=== PATIENT | female | born 1955 | race Caucasian/White ===

== ENCOUNTER 2022-11-03 12:18 | Emergency (ER) | payer MEDICARE, BC, SELFPAY ==
[2022-11-03 12:39] VITALS: BP 167/71; PULSE 62; RESP 18; TEMP 37; O2SAT 99
--- NOTE | 2022-11-03 14:15 | DI.CT_ITS ---
Exam(s) CT LOWER EXTREMITY RT WO EXAM: CT LOWER EXTREMITY RT WO CLINICAL HISTORY: fall, knee and prox tib fib pain. TECHNIQUE: Imaging Protocol: Axial computed tomography images with coronal and sagittal reformatted images were created and reviewed. CONTRAST MATERIAL: Intravenous: Omnipaque 350 Contrast volume:structured data in ml Contrast route:IV - COMPARISON: No exams were available for comparison FINDINGS: A hemarthrosis present. There is a comminuted fracture of the lateral tibial plateau with significant impaction at the articu lar surface, up to 1 cm. The impaction is greater anteriorly and centrally. The medial tibial plate au is intact. There has been a prior ACL repair. The distal femur and patella are intact. No addit ional fractures are seen more distally in the tibia and fibula. The ankle and visualized portions of the foot are unremarkable. No soft tissue hematoma is seen. IMPRESSION: Comminuted, and impacted fracture of the lateral tibial plateau. RADIATION DOSE DELIVERED: 554.02mGy.cm Total DLP DATA REPOSITORY: All CT scans at this facility are submitted to the National Radiology Data Registry (NRDR) Dose Index Registry (DIR) with the [employer] ([employer]). RADIATION OPTIMIZATION: All CT scans at this facility use at least one of these dose optimization te chniques: automated exposure control; mA and/or kV adjustment per patient size (includes targeted exa ms where dose is matched to clinical indication); or iterative reconstruction.
--- NOTE | 2022-11-03 14:38 | ED.GENADUL_ITS ---
Discharge Plan Disposition Patient Disposition: Home Condition: Stable Discharge Details Clinical Impression: Closed fracture of tibial plateau Primary Care Provider: C[facility],Local ED Provider: Lv Edwards Home Meds and New Rx's Prescriptions: New oxycodone-acetaminophen [Percocet] 5-325 mg tablet 1 tab PO Q8H PRN (Reason: pain) Qty: 10 0RF Rx Instructions: prn severe pain only pantoprazole 40 mg tablet,delayed release (DR/EC) 40 mg PO DAILY Qty: 14 0RF Colace Clear 50 mg capsule 50 mg PO DAILY Qty: 14 0RF No Action cetirizine [Zyrtec] 10 mg Tablet 10 mg PO HS atorvastatin 10 mg Tablet 10 mg PO DAILY diltiazem HCl 240 mg Capsule,Extended Release 24hr 240 mg PO HS lisinopril 10 mg Tablet 10 mg PO DAILY albuterol 90 mcg/actuation Aerosol 2 mcg INHALATION PRN PRN budesonide-formoterol [Symbicort] 80-4.5 mcg/actuation Hfa Aerosol Inhaler 2 puff INHALATION BID Discharge Instructions Instructions: Leg Fracture (ED) Additional Instructions: Please follow-up closely with your project management it specialist when you return home to [place]. Use knee immobilizer and crutches keep leg nonweightbearing. Elevate and ice. Continue with ibuprofen and/or acetaminophen at home for pain and swelling. Use Percocet sparingly for severe pain only. I also prescribed you an acid suppressant medication pantoprazole as well as a stool softener Colace to prevent constipation. If you develop worsening symptoms such as severe worsening pain numbness tingling weakness color changes or any other abnormal symptoms of your leg please return to the emergency department promptly for reassessment. Medical Decision Making 67-year-old female presents after fall while skiing, remote ACL and tibial plateau injury, effusion to knee, no crepitus deformity or laxity, patient does have ecchymosis and swelling to lateral aspect of fibula, DP pulse intact sensation intact, range of motion limited by pain. Concern for ACL injury versus meniscal injury versus collateral ligament injury versus must consider distal femur fracture versus tibial plateau fracture, no evidence of compartment syndrome at this time given warm well perfused sensate extremity patient only wants Motrin and Tylenol for pain control at this time have offered to increase analgesia as needed. Given past surgical complexity and level of discomfort and localized edema will obtain CT of lower extremity to assess joint and leg. Disposition pending imaging results 17: 37 progressive pain specifically over anterior glover of affected limb. Depressed tibial plateau fracture. DP pulse intact sensation intact however patient is no longer able to dorsiflex toes or foot despite effort. Is able to passively have foot and toes dorsiflexed. Tense anterior region. Given progressive pain and now motor findings will obtain compartment pressures. 18: 43 persistent discomfort and inability to dorsiflex, able to be passively dorsiflex without much discomfort. Compartment pressures were obtained using Eric needle under sterile conditions. Anterior compartment pressure 24, lateral compartment pressure 13, deep posterior pressure 4 and superficial posterior pressure 11; sensation in leg remains intact, DP pulses strong warm well perfused extremity. With pressure reading of anterior compartment hematoma was spontaneously expressing from puncture site. Hemostatic with pressure. We will continue with pain management here in department and discuss options for discharge versus admission for pain control. Patient placed in knee immobilizer 20: 18 pain more controlled resting comfortably. Limb remains warm with good DP pulse sensate and toe mobility intact. Patient prefers to follow-up with her orthopedic surgeon in [place] given home care instructions and strict return precautions specifically for any signs of compartment syndrome. Patient will be discharged in knee immobilizer and crutches. HPI General Date/Time Provider Initiated Documentation: 11/03/22 14:11 . HPI Narrative: 67-year-old female remote tibial plateau and ACL injury right lower extremity presents with right lower extremity injury while skiing, fell forward onto her knee and face, no loss of consciousness, pain in her knee and lower extremity. Worse with movement. Related Data Home Medications Medication Instructions Recorded Confirmed albuterol 90 mcg/actuation aerosol 2 mcg inhalation PRN PRN 11/03/22 11/03/22 inhaler atorvastatin 10 mg tablet 10 mg PO DAILY 11/03/22 11/03/22 budesonide-formoterol HFA 80 2 puff inhalation BID 11/03/22 11/03/22 mcg-4.5 mcg/actuation aerosol inhaler (Symbicort) cetirizine 10 mg tablet (Zyrtec) 10 mg PO HS 11/03/22 11/03/22 diltiazem HCl 240 mg 240 mg PO HS 11/03/22 11/03/22 capsule,extended release 24 hr docusate sodium 50 mg capsule 50 mg PO DAILY #14 caps 11/03/22 (Colace Clear) lisinopril 10 mg tablet 10 mg PO DAILY 11/03/22 11/03/22 oxycodone-acetaminophen 5 mg-325 1 tab PO Q8H PRN pain #10 tabs 11/03/22 mg tablet (Percocet) pantoprazole 40 mg tablet,delayed 40 mg PO DAILY #14 tabs 11/03/22 release Previous Rx's Medication Instructions Recorded docusate sodium 50 mg capsule 50 mg PO DAILY #14 caps 11/03/22 (Colace Clear) oxycodone-acetaminophen 5 mg-325 1 tab PO Q8H PRN pain #10 tabs 11/03/22 mg tablet (Percocet) pantoprazole 40 mg tablet,delayed 40 mg PO DAILY #14 tabs 11/03/22 release General Stated Complaint: Orthopedic SHANICE: 4 Review of Systems Narrative: Review of Systems Constitutional: negative Eyes: negative ENT: negative Cardiovascular: negative Respiratory: negative Gastrointestinal: negative : negative Musculoskeletal: Knee injury Skin: negative Neurologic: negative Psych: negative PFSH All Active Problems (Updated 11/03/22 @ 20:19 by Lv Edwards MD) Closed fracture of tibial plateau (Acute) Social History Smoking/Tobacco Use Status: Never Smoking risk assessment performed?: Yes Alcohol Intake: current Alcohol Intake frequency: a few times a week Alcohol type: wine Drug use: Never Do you feel safe at home: Yes (Spouse at bedside) Do you feel safe in your relationship?: Yes Exam Narrative Exam Narrative: Physical Examination General: alert, awake, cooperative, resting comfortably, no acute distress HEENT: normocephalic, abrasion to upper lip and chin, no malocclusion; PERRL, EOM intact, conjunctiva normal; no nasal discharge; moist mucous membranes, oral and pharyngeal mucosa normal, tolerating secretions Neck: supple, trachea midline; full ROM Chest: normal to inspection Respiratory: normal respiratory effort, speaking in full sentences, clear to auscultation, no wheezing, rales or rhonchi Cardiac: regular rate, regular rhythm, S1S2 intact, no murmurs rubs or gallops GI: abdomen soft, non-tender, non-distended; no palpable mass or hepatosplenomegaly Skin: no lesions, rashes or trauma appreciated Neuro: AAOx3, normal speech, moving all extremities Extremities: Suprapatellar effusion no crepitus or deformity, patient does have ecchymosis and swelling to lateral aspect of fibula, DP pulse intact, sensation in toes and foot intact, warm well perfused extremity, flexion extension limited by pain Psych: Appropriate mood and affect Course Vital Signs Vital signs: Vital Signs Temperature 37.0 C 11/03/22 12:39 Pulse 62 11/03/22 12:39 Respiratory Rate 18 11/03/22 12:39 Blood Pressure 167/71 H 11/03/22 12:39 Pulse Oximetry 99 11/03/22 12:39 Temperature 37.0 C 11/03/22 12:39 Pulse 62 11/03/22 12:39 Respiratory Rate 18 11/03/22 12:39 Blood Pressure 167/71 H 11/03/22 12:39 Blood Pressure Position Sitting 11/03/22 12:39 Pulse Oximetry 99 11/03/22 12:39 Oxygen Delivery Method Room Air 11/03/22 12:39 Oxygen Flow Rate 0 11/03/22 12:39 Pain Level 7 11/03/22 12:39
[2022-11-03] MEDS: Ibuprofen 600 MG TAB PO (14:42)
[2022-11-03] MEDS: Acetaminophen 325 MG TAB 650 MG PO (14:42)
[2022-11-03 15:48] VITALS: BP 124/46; PULSE 57; RESP 12; TEMP 36.4; O2SAT 97
[2022-11-03] MEDS: Ketorolac 15 MG/ML VIAL IVP (16:34)
[2022-11-03] MEDS: LORazepam 2 MG/ML VIAL 1 MG IVP (16:35)
--- NOTE | 2022-11-03 16:36 | DI.VRAD_ITS ---
PROCEDURE INFORMATION: Exam: CT Right Lower Extremity Without Contrast Exam date and time: 11/03/2022 3:27 PM Age: 67 years old Clinical indication: Other: Fall, knee to prox tib fib pain TECHNIQUE: Imaging protocol: CT of the Right lower extremity without contrast was performed. Radiation optimization: All CT scans at this facility use at least one of these dose optimization techniques: automated exposure control; mA and/or kV adjustment per patient size (includes targeted exams where dose is matched to clinical indication); or iterative reconstruction. COMPARISON: No relevant prior studies available. FINDINGS: Bones/joints: Patient is status post remote anterior cruciate ligament repair. There is an acute comminuted, type 3, tibial plateau fracture involving the right lateral tibial plateau. There is a joint effusion within the suprapatellar and the femoral tibial joint spaces, consistent with a hemarthrosis. Small osteochondral fragments are present at the level of the intercondylar eminence, this may be secondary to patient's prior surgery versus acute injury. Soft tissues: There is extensive soft tissue swelling. IMPRESSION: 1. Patient is status post remote anterior cruciate ligament repair. 2. There is an acute comminuted, type 3, tibial plateau fracture involving the right lateral tibial plateau. 3. There is a joint effusion within the suprapatellar and the femoral tibial joint spaces, consistent with a hemarthrosis. 4. Small osteochondral fragments are present at the level of the intercondylar eminence, this may be secondary to patient's prior surgery versus acute injury. . Dictated and Authenticated by: Wallace Miguel MD. Ordering:NAMRATA Awan MD
[2022-11-03 17:05] VITALS: BP 142/50; PULSE 59; RESP 18; TEMP 36.4; O2SAT 96
[2022-11-03] MEDS: Ondansetron 4 MG/2 ML VIAL IVP (17:15)
[2022-11-03] MEDS: fentaNYL 100 MCG/2 ML VIAL 50 MCG IVP ×2 (17:15→17:52)
[2022-11-03 17:52] VITALS: BP 134/66; PULSE 60; RESP 16; TEMP 36.4; O2SAT 95
[2022-11-03] MEDS: HYDROmorphone 2 MG/ML SYR 0.5 MG IVP (19:34)
[2022-11-03] MEDS: oxyCODONE 5 mg/Acetaminophen 325 mg TAB 3 TAB PO (20:37)
[2022-11-03] MEDS: oxyCODONE 5 mg/Acetaminophen 325 mg TAB 1 TAB PO (20:37)
[2022-11-03 20:40] VITALS: BP 142/69; PULSE 82; RESP 16; TEMP 36.6; O2SAT 98
== END 2022-11-03 20:53 | disposition home or self-care (01) ==
PROVIDERS: Emergency Provider Emergency Medicine
DX: S82.141A Displaced bicondylar fracture of right tibia, initial encounter for closed fracture (principal); W19.XXXA Unspecified fall, initial encounter; Y93.23 Activity, snow (alpine) (downhill) skiing, snowboarding, sledding, tobogganing and snow tubing
CPT/HCPCS: 96374; 96375; 99284; 73700; J1170; J1885; J2060; J2405; J3010